=== PATIENT | female | born 1975 | race Caucasian/White ===

== ENCOUNTER 2017-02-13 06:04 | Inpatient (IN) | payer OTHER ==
[2017-02-11 12:08] LABS: BLOOD UREA NITROGEN 13 mg/dL (7-18)
[2017-02-11 12:35] LABS: ASPARTATE AMINO TRANSFERASE 20 U/L (15-37); TOTAL IRON BINDING CAPACITY 396 mcg/dL (250-450); TRANSFERRIN 285 mg/dL (200-360)
[~2017-02-13] VITALS: Ht 167.6 cm; Wt 94.0 kg
[~2017-02-13 06:04] MED LIST: HYDR25TA6 PO
[2017-02-13] MEDS ORDERED: BUPIVACAINE/PF-EPI 0.5% 1:200K ONE (06:59)
[2017-02-13] MEDS ORDERED: LACTATED RINGERS 1,000 ML IV SCH ×2 (07:38→23:05)
[2017-02-13] MEDS ORDERED: SCOPOLAMINE PATCH, 1.5MG PATCH.TD72 TD ONE (08:00)
[2017-02-13] MEDS ORDERED: SUGAMMADEX 200 MG/2 ML IVPush ONE (08:01)
[2017-02-13 08:14] LABS: HCG UR OBC PASS
[2017-02-13 08:18] VITALS: BP 130/82
[2017-02-13] MEDS ORDERED: FENTANYL PF 250 MCG/5ML ONE (08:21)
[2017-02-13] MEDS ORDERED: MIDAZOLAM 1 MG/ML, 2ML ONE (08:21)
[2017-02-13] MEDS ORDERED: ONDANSETRON 2MG/ML, 2ML ONE (09:17)
[2017-02-13] MEDS ORDERED: DEXAMETHASONE 4 MG/ML, 1ML ONE (09:17)
[2017-02-13] MEDS ORDERED: ROCURONIUM 10 MG/ML ONE (09:17)
[2017-02-13] MEDS ORDERED: PROPOFOL 10 MG/ML, 20ML ONE (09:17)
[2017-02-13] MEDS ORDERED: CEFAZOLIN 1,000 MG ONE (09:17)
[2017-02-13] MEDS ORDERED: SUCCINYLCHOLINE 20 MG/ML, 10ML ONE (09:17)
[2017-02-13] MEDS ORDERED: LABETALOL 5MG/ML, 20ML IV PRN (10:00)
[2017-02-13] MEDS ORDERED: OXYcodone 5 MG/5 ML ORAL.SOL UDC PO PRN (10:00)
[2017-02-13] MEDS ORDERED: ACETAMINOPHEN 325 MG TABLET PO PRN (10:00)
[2017-02-13] MEDS ORDERED: FENTANYL PF 100 MCG/2ML IV PRN (10:00)
[2017-02-13] MEDS ORDERED: METOCLOPRAMIDE 5 MG/ML, 2ML IV PRN (10:00)
[2017-02-13] MEDS ORDERED: ONDANSETRON 2MG/ML, 2ML IVPush PRN ×2 (10:00→10:30)
[2017-02-13] MEDS ORDERED: hydrALAzine 20 MG/ML, 1ML IV PRN (10:00)
[2017-02-13] MEDS ORDERED: LORazepam 2 MG/ML, 1ML IV PRN (10:30)
[2017-02-13] MEDS ORDERED: DIPHENHYDRAMINE 50 MG/ML, 1ML IV PRN (10:30)
[2017-02-13] MEDS ORDERED: PROMETHAZINE 25 MG/ML, 1ML IM PRN (10:30)
[2017-02-13] MEDS ORDERED: hydrALAzine 20 MG/ML, 1ML IVPush PRN (10:30)
[2017-02-13] MEDS ORDERED: ENALAPRILAT 1.25 MG/ML, 2ML IV PRN (10:30)
[2017-02-13] MEDS ORDERED: PROMETHAZINE 12.5 MG SUPP PR PRN (10:30)
[2017-02-13] MEDS ORDERED: HYDROmorphone 1 MG/ML, 1ML ONE (10:59)
[2017-02-13] MEDS ORDERED: ACETAMINOPHEN 650 MG/20.3 ML UDC ONE (10:59)
[2017-02-13] MEDS ORDERED: OXYcodone 5 MG/5 ML ORAL.SOL UDC ONE (11:00)
[2017-02-13] MEDS: HYDROmorphone 1 MG/ML, 1ML IV PRN ×4 (11:09→11:54)
[2017-02-13 12:30] VITALS: BP 148/93
[2017-02-13] MEDS: morphine SULFATE 10 MG/ML, 1ML IVPush PRN ×3 (14:49→21:30)
[2017-02-13] MEDS: FAMOTIDINE 20 MG/2 ML IVPush SCH ×2 (14:49→21:30)
[2017-02-13] MEDS: LACTATED RINGERS 1,000 ML IV SCH ×2 (17:47→23:04)
[2017-02-13 19:55] VITALS: BP 132/75
[2017-02-13] MEDS ORDERED: HYDROcodone/APAP 7.5-325MG/15ML UDC PO PRN (22:00)
[2017-02-14 00:08] VITALS: BP 144/82
[2017-02-14 04:08] VITALS: BP 136/82
[2017-02-14 05:29] LABS: BLOOD UREA NITROGEN 8 mg/dL (7-18)
[2017-02-14 07:16] VITALS: BP 132/78
[2017-02-14] MEDS: FAMOTIDINE 20 MG/2 ML IVPush SCH (08:58)
[2017-02-14 10:07] VITALS: BP 135/78
== END 2017-02-14 12:51 | disposition home or self-care (01) | DRG 621 ==
LOC: ORIP 06:04 → 4NOR 12:27 → DCLOUNGE 02-14 12:22
PROVIDERS: ADMIT Thoracic Surgery (Cardiothoracic Vascular Surgery); ATTEND Thoracic Surgery (Cardiothoracic Vascular Surgery)
PROC: 0DB64Z3 Excision of Stomach, Percutaneous Endoscopic Approach, Vertical (ICD-10-PCS; principal; 2017-02-13 09:30)
DX: E66.01 Morbid (severe) obesity due to excess calories (principal); Z68.42 Body mass index [BMI] 45.0-49.9, adult; Z90.89 Acquired absence of other organs; Z82.49 Family history of ischemic heart disease and other diseases of the circulatory system; Z82.5 Family history of asthma and other chronic lower respiratory diseases
CPT/HCPCS: 36415; 71020; 80048; 80053; 80061; 81025; 82040; 82306; 82607; 82728; 82746; 83540; 83550; 83970; 84134; 84425; 84466; 85025; 93005; J0690; J1100; J1170; J2250; J2405; J2704; J3010; J0330; J2270; J7120; S0028